=== PATIENT | female | born 1950 | race Caucasian/White ===

== ENCOUNTER → 2019-08-22 | Outpatient (CLI) | payer MEDICARE ==
[2019-08-22 08:54] LABS: Basophils # (A) 0.1 k/uL (0-0.2); Basophils % (A) 1 %; Eosinophils # (A) 0.2 k/uL (0-0.7); Eosinophils % (A) 4 %; HCT 38.2 % (34.0-46.0); HGB 11.8 gm/dL (11.4-16.0); Hypochromasia Slight; Lymphocytes # (A) 1.1 k/uL (1.0-4.8); Lymphocytes % (A) 28 %; MCH 28.9 pg (25.0-35.0); MCHC 30.9 g/dL (31.0-37.0); MCV 93.6 fL (80.0-100.0); Mean Platelet Volume 6.9; Monocytes # (A) 0.2 k/uL (0-1.0); Monocytes % (A) 6 %; Neutrophils # (A) 2.3 k/uL (1.3-7.7); Neutrophils % (A) 58 %; Platelet Count 203 k/uL (150-450); RBC 4.08 m/uL (3.80-5.40); RDW 14.5 % (11.5-15.5); WBC 3.9 k/uL (3.8-10.6)
[2019-08-22 16:27] LABS: African American GFR (CKD) 103.9 (60.0-200.0); Albumin 3.8 g/dL (3.80-4.90); Albumin/Globulin Ratio 2.38 (1.60-3.17); Anion Gap 4.4 mmol/L (4.00-12.00); BUN/Creat Ratio 32.86 Ratio (12.00-20.00); Calcium 9.1 mg/dL (8.7-10.3); Carbon Dioxide 31.6 mmol/L (21.6-31.8); Globulin 1.6 g/dL (1.6-3.3); Non-African American GFR(CKD) 89.7 (60.0-200.0); Potassium 4.7 mmol/L (3.5-5.5); Total Bilirubin 0.4 mg/dL (0.2-1.2); Total Protein 5.4 g/dL (6.2-8.2)
[2019-08-22 16:33] LABS: T4, Free (Free Thyroxine) 1.1 ng/dL (0.80-1.80)
[2019-08-22 18:11] LABS: Hemoglobin A1C 5.8 % (4.0-6.0)
== END | disposition home or self-care (01) ==
LOC: LABWHC1 08:23
PROVIDERS: ATTEND Family Medicine
DX: E03.9 Hypothyroidism, unspecified (principal); R10.13 Epigastric pain; F32.9 Major depressive disorder, single episode, unspecified; Z13.820 Encounter for screening for osteoporosis; R73.01 Impaired fasting glucose
CPT/HCPCS: 36415; 80053; 82150; 82306; 83036; 83690; 84439; 84443; 84481; 85025

== ENCOUNTER 2020-10-05 14:39 | Emergency (ER) | payer MEDICARE, OTHER ==
[2020-10-05 14:52] VITALS: TEMP 98.3
[2020-10-05] MEDS ORDERED: DIPH,PERTUS(ACELL)TETVAC-LF 0.5 ML VIAL IM ONE (15:12)
--- NOTE | 2020-10-05 15:39 | ED ---
Psych HPI <Barrett Padron - Last Filed: 10/05/20 16:28> - General Source: patient, EMS, RN notes reviewed Mode of arrival: EMS - History of Present Illness MD Complaint: suicidal ideation, feels depressed, other <Saman Rasmussen - Last Filed: 10/05/20 20:17> - General Chief Complaint: Psychiatric Symptoms Stated Complaint: fall, ETOH Time Seen by Provider: 10/05/20 14:45 - History of Present Illness Initial Comments: This is a 62-year-old female who is brought in by EMS after a fall in her shower today she states she was intoxicated drinking 2 L of wine because of a breakup with her boyfriend. She also states she is suicidal. She did cut her upper and lower lip when she fell she denies any head neck or back pain. She was brought in with a cervical collar. She is not sure when her last tetanus shot was. She denies a loss of function to her upper or lower extremities. She denies any drugs. (Saman Rasmussen) - Related Data Home Medications Medication Instructions Recorded Confirmed No Known Home Medications 10/05/20 10/05/20 Allergies Allergy/AdvReac Type Severity Reaction Status Date / Time ceftriaxone AdvReac Rash/Hives Verified 10/05/20 16:48 Review of Systems ROS Other: All systems not noted in ROS Statement are negative. <Barrett Padron - Last Filed: 10/05/20 16:28> ROS Other: All systems not noted in ROS Statement are negative. <Saman Rasmussen - Last Filed: 10/05/20 20:17> ROS Statement: Those systems with pertinent positive or pertinent negative responses have been documented in the HPI. Past Medical History Additional Past Medical History / Comment(s): hypothyroidism History of Any Multi-Drug Resistant Organisms: None Reported Past Surgical History: Adenoidectomy, Cholecystectomy Additional Past Surgical History / Comment(s): gastric bypass, bilat breast reduction Past Psychological History: Depression Smoking Status: Former smoker Past Alcohol Use History: Daily, Heavy Past Drug Use History: None Reported <Saman Rasmussen - Last Filed: 10/05/20 20:17> General Exam Limitations: no limitations General appearance: alert, in no apparent distress Head exam: Present: atraumatic, normocephalic, normal inspection Eye exam: Present: normal appearance, PERRL, EOMI. Absent: scleral icterus, conjunctival injection, periorbital swelling ENT exam: Present: TM's normal bilaterally, other (Upper and lower lip laceration on the left dentition is intact. The upper lip will require no repair lower lip will require repair. No active bleeding no tongue injury noted oropharynx is otherwise clear) Neck exam: Present: normal inspection (Cervical collar in place no stridor JVD or bruits no overt tenderness on initial palpation) Respiratory exam: Present: normal lung sounds bilaterally. Absent: respiratory distress, wheezes, rales, rhonchi, stridor Cardiovascular Exam: Present: regular rate, normal rhythm, normal heart sounds. Absent: systolic murmur, diastolic murmur, rubs, gallop, clicks GI/Abdominal exam: Present: soft, normal bowel sounds. Absent: distended, tenderness, guarding, rebound, rigid Extremities exam: Present: normal inspection, full ROM, normal capillary refill. Absent: tenderness, pedal edema, joint swelling, calf tenderness Back exam: Present: normal inspection Neurological exam: Present: alert, oriented X3, CN II-XII intact Psychiatric exam: Present: depressed, suicidal ideation Skin exam: Present: warm, dry, normal color. Absent: intact, rash <Saman Rasmussen - Last Filed: 10/05/20 20:17> - General Exam Comments Initial Comments: Is a well-developed well-nourished alert oriented 3 female who is demonstrating Lilli Coma Scale of 15 she does have the smell of alcohol conjoiners on her breath (Saman Rasmussen) Course Vital Signs 10/05/20 10/05/20 10/05/20 14:40 16:00 17:04 Temperature 98.3 F Pulse Rate 68 65 62 Respiratory 22 20 20 Rate Blood Pressure 145/75 158/84 150/78 O2 Sat by Pulse 95 96 97 Oximetry 10/05/20 17:42 Temperature Pulse Rate 72 Respiratory 20 Rate Blood Pressure 138/84 O2 Sat by Pulse 96 Oximetry Procedures - Laceration Laceration #1 Consent Obtained: verbal consent Indication: laceration Site: lip Size (cm): 1 Description: irregular, clean Depth: simple, single layer Sedation/Analgesia: none Anesthetic Used: lidocaine 1% Anesthesia Technique: nerve block Amount (mls): 1 Pre-repair: irrigated extensively, deep structures intact Type of Sutures: nylon Size of Sutures: 4-0 Number of Sutures: 3 Technique: simple, interrupted Patient Tolerated Procedure: well, no complications <Barrett Padron - Last Filed: 10/05/20 16:28> Medical Decision Making - Lab Data Result diagrams: 10/05/20 15:21 <Barrett Padron - Last Filed: 10/05/20 16:28> - Lab Data Result diagrams: 10/05/20 15:21 10/05/20 15:21 - EKG Data -: EKG Interpreted by [facility] EKG shows normal: sinus rhythm, axis, intervals, QRS complexes, ST-T waves Rate: normal <Saman Rasmussen - Last Filed: 10/05/20 20:17> - Medical Decision Making The patient was evaluated by the EPS service and currently is not a risk to himself or anyone else to be discharged outpatient referrals. (Saman Rasmussen) - Lab Data Lab Results 10/05/20 10/05/20 10/05/20 Range/Units 15:21 15:21 15:21 WBC 4.2 (3.8-10.6) k/uL RBC 3.93 (3.80-5.40) m/uL Hgb 12.2 (11.4-16.0) gm/dL Hct 36.6 (34.0-46.0) % MCV 93.2 (80.0-100.0) fL MCH 31.0 (25.0-35.0) pg MCHC 33.3 (31.0-37.0) g/dL RDW 14.9 (11.5-15.5) % Plt Count 241 (150-450) k/uL MPV 6.6 Neutrophils % 67 % Lymphocytes % 23 % Monocytes % 5 % Eosinophils % 3 % Basophils % 1 % Neutrophils # 2.8 (1.3-7.7) k/uL Lymphocytes # 0.9 L (1.0-4.8) k/uL Monocytes # 0.2 (0-1.0) k/uL Eosinophils # 0.1 (0-0.7) k/uL Basophils # 0.0 (0-0.2) k/uL Sodium 138 (137-145) mmol/L Potassium 4.5 (3.5-5.1) mmol/L Chloride 100 (98-107) mmol/L Carbon Dioxide 29 (22-30) mmol/L Anion Gap 9 mmol/L BUN 16 (7-17) mg/dL Creatinine 0.68 (0.52-1.04) mg/dL Est GFR (CKD-EPI)AfAm >90 (>60 ml/min/1.73 sqM) Est GFR (CKD-EPI)NonAf >90 (>60 ml/min/1.73 sqM) Glucose 104 H (74-99) mg/dL Calcium 9.0 (8.4-10.2) mg/dL Magnesium 2.3 (1.6-2.3) mg/dL Total Bilirubin 0.1 L (0.2-1.3) mg/dL AST 48 H (14-36) U/L ALT 26 (4-34) U/L Alkaline Phosphatase 76 (38-126) U/L Creatine Kinase 68 (30-135) U/L Troponin I (0.000-0.034) ng/mL Total Protein 6.0 L (6.3-8.2) g/dL Albumin 3.7 (3.5-5.0) g/dL Urine Opiates Screen Not Detected (NotDetected) Ur Oxycodone Screen Not Detected (NotDetected) Urine Methadone Screen Not Detected (NotDetected) Ur Propoxyphene Screen Not Detected (NotDetected) Ur Barbiturates Screen Not Detected (NotDetected) U Tricyclic Antidepress Not Detected (NotDetected) Ur Phencyclidine Scrn Not Detected (NotDetected) Ur Amphetamines Screen Not Detected (NotDetected) U Methamphetamines Scrn Not Detected (NotDetected) U Benzodiazepines Scrn Not Detected (NotDetected) Urine Cocaine Screen Not Detected (NotDetected) U Marijuana (THC) Screen Not Detected (NotDetected) Serum Alcohol 140 mg/dL 10/05/20 Range/Units 15:21 WBC (3.8-10.6) k/uL RBC (3.80-5.40) m/uL Hgb (11.4-16.0) gm/dL Hct (34.0-46.0) % MCV (80.0-100.0) fL MCH (25.0-35.0) pg MCHC (31.0-37.0) g/dL RDW (11.5-15.5) % Plt Count (150-450) k/uL MPV Neutrophils % % Lymphocytes % % Monocytes % % Eosinophils % % Basophils % % Neutrophils # (1.3-7.7) k/uL Lymphocytes # (1.0-4.8) k/uL Monocytes # (0-1.0) k/uL Eosinophils # (0-0.7) k/uL Basophils # (0-0.2) k/uL Sodium (137-145) mmol/L Potassium (3.5-5.1) mmol/L Chloride (98-107) mmol/L Carbon Dioxide (22-30) mmol/L Anion Gap mmol/L BUN (7-17) mg/dL Creatinine (0.52-1.04) mg/dL Est GFR (CKD-EPI)AfAm (>60 ml/min/1.73 sqM) Est GFR (CKD-EPI)NonAf (>60 ml/min/1.73 sqM) Glucose (74-99) mg/dL Calcium (8.4-10.2) mg/dL Magnesium (1.6-2.3) mg/dL Total Bilirubin (0.2-1.3) mg/dL AST (14-36) U/L ALT (4-34) U/L Alkaline Phosphatase (38-126) U/L Creatine Kinase (30-135) U/L Troponin I <0.012 (0.000-0.034) ng/mL Total Protein (6.3-8.2) g/dL Albumin (3.5-5.0) g/dL Urine Opiates Screen (NotDetected) Ur Oxycodone Screen (NotDetected) Urine Methadone Screen (NotDetected) Ur Propoxyphene Screen (NotDetected) Ur Barbiturates Screen (NotDetected) U Tricyclic Antidepress (NotDetected) Ur Phencyclidine Scrn (NotDetected) Ur Amphetamines Screen (NotDetected) U Methamphetamines Scrn (NotDetected) U Benzodiazepines Scrn (NotDetected) Urine Cocaine Screen (NotDetected) U Marijuana (THC) Screen (NotDetected) Serum Alcohol mg/dL - EKG Data EKG Comments: Normal sinus rhythm a 65. We'll 156 QRS duration 88 QT since QTC 440/[address]-T wave changes (Saman Rasmussen) Disposition <Barrett Padron - Last Filed: 10/05/20 16:28> Is patient prescribed a controlled substance at d/c from ED?: No <Saman Rasmussen - Last Filed: 10/05/20 20:17> Clinical Impression: Alcohol intoxication, Laceration of lip, Adjustment reaction Disposition: HOME SELF-CARE Condition: Good Instructions (If sedation given, give patient instructions): Mood Disorders (ED), Laceration (ED), Alcohol Intoxication (ED) Referrals: Cynthia Plascencia MD [Primary Care Provider] - 1-2 days
[2020-10-05 15:56] LABS: ALT 26 U/L (4-34); AST 48 U/L (14-36); African American GFR (CKD) >90 (>60 ml/min/1.73 sqM); Albumin 3.7 g/dL (3.5-5.0); Alkaline Phosphatase 76 U/L (38-126); Anion Gap 9 mmol/L; Blood Urea Nitrogen 16 mg/dL (7-17); Carbon Dioxide 29 mmol/L (22-30); Chloride 100 mmol/L (98-107); Creatine Kinase 68 U/L (30-135); Glucose 104 mg/dL (74-99); Magnesium 2.3 mg/dL (1.6-2.3); Non-African American GFR(CKD) >90 (>60 ml/min/1.73 sqM); Potassium 4.5 mmol/L (3.5-5.1); Sodium 138 mmol/L (137-145); Total Bilirubin 0.1 mg/dL (0.2-1.3)
--- NOTE | 2020-10-05 15:57 | CT ---
EXAMINATION TYPE: CT brain estefany butler con DATE OF EXAM: 10/05/2020 COMPARISON: None HISTORY: Syncopal episode with injury CT DLP: 1537.7 mGycm Automated exposure control for dose reduction was used. Exam performed with no contrast. Ventricles have normal size. There is no mass effect nor midline shift. There is no sign of intracran ial hemorrhage. There is mild cerebral atrophy. Calvarium is intact. The cervical vertebra have normal alignment. There is degenerative disc space narrowing from C4 to C7 with spurring of the endplates. Facet joints are intact. IMPRESSION: Mild cerebral atrophy. No acute intracranial abnormality. Spondylotic changes in the mid and lower cervical spine. No fracture.
[2020-10-05] MEDS ORDERED: LIDOCAINE 1% INJ 10MG/ML (20 ML MDV) SQ ONE (16:01)
[2020-10-05 16:17] LABS: Alcohol 140 mg/dL
[2020-10-05 16:39] LABS: Basophils % (A) 1 %; Eosinophils # (A) 0.1 k/uL (0-0.7); Eosinophils % (A) 3 %; HCT 36.6 % (34.0-46.0); HGB 12.2 gm/dL (11.4-16.0); Lymphocytes # (A) 0.9 k/uL (1.0-4.8); Lymphocytes % (A) 23 %; MCHC 33.3 g/dL (31.0-37.0); MCV 93.2 fL (80.0-100.0); Mean Platelet Volume 6.6; Monocytes # (A) 0.2 k/uL (0-1.0); Monocytes % (A) 5 %; Neutrophils # (A) 2.8 k/uL (1.3-7.7); Neutrophils % (A) 67 %; Platelet Count 241 k/uL (150-450); RBC 3.93 m/uL (3.80-5.40); RDW 14.9 % (11.5-15.5); WBC 4.2 k/uL (3.8-10.6)
[2020-10-05 17:18] LABS: Amphetamine Screen,Urine Not Detected (NotDetected); Barbiturate Screen,Urine Not Detected (NotDetected); Benzodiazepines Screen,Urine Not Detected (NotDetected); Cocaine Screen,Urine Not Detected (NotDetected); Methadone Screen, Urine Not Detected (NotDetected); Opiate Screen,Urine Not Detected (NotDetected); Oxycodone Screen, Urine Not Detected (NotDetected); Phencyclidine Screen,Urine Not Detected (NotDetected); Tricyclic Antidepressant,Urine Not Detected (NotDetected); Urn Cannabinoid Scrn Not Detected (NotDetected)
[2020-10-05] MEDS ORDERED: IBUPROFEN 800 MG TAB PO STA (17:45)
[2020-10-05 23:30] VITALS: BP 143/89; PULSE 66; RESP 95
== END 2020-10-05 20:35 | disposition home or self-care (01) ==
LOC: EC 14:39 → SUPCPDRO 14:39 → EC 20:35
DX: S01.511A Laceration without foreign body of lip, initial encounter (principal); F10.129 Alcohol abuse with intoxication, unspecified; F43.20 Adjustment disorder, unspecified; E03.9 Hypothyroidism, unspecified; Z87.891 Personal history of nicotine dependence; Z88.1 Allergy status to other antibiotic agents; Z23 Encounter for immunization; Y90.9 Presence of alcohol in blood, level not specified; W18.2XXA Fall in (into) shower or empty bathtub, initial encounter
CPT/HCPCS: 90471 ×2; 12011; 99285 ×2; 12001; 36415; 93005; 80053; 82550; 83735; 84484; 85025; 80306; 72125; 70450; 90715; G0480; J2001; 80320

== ENCOUNTER 2021-01-22 08:05 | Emergency (ER) | payer MEDICARE, OTHER ==
[2021-01-22] MEDS ORDERED: ENALAPRILAT 1.25 MG/ML 1 ML VIAL IVP STA (08:33)
--- NOTE | 2021-01-22 08:38 | ED ---
General Adult HPI - General Chief complaint: Chest Pain Stated complaint: High blood pressure Time Seen by Provider: 01/22/21 08:09 Source: patient, EMS, RN notes reviewed Mode of arrival: EMS Limitations: no limitations - History of Present Illness Initial comments: 70-year-old female presents emergency department via EMS with chief complaint of hypertension. 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 Patient states she is under a large amount of stress with her life and which this is been weighing on her. Patient states she gets very anxious, worked up, having issues with her stress. Denies any suicidal homicidal. Patient states she has no history of hypertension thank you complaint of chest pain currently. She states she just gets stressed feels heavy. Patient denies any nausea vomiting diarrhea constipation. Patient offers no other associated complaints. - Related Data Home Medications Medication Instructions Recorded Confirmed Cholecalciferol [Vitamin D3 (25 25 mcg PO DAILY 01/22/21 01/22/21 Mcg = 1000 Iu)] Cyanocobalamin (Vitamin B-12) 1,000 mcg PO DAILY 01/22/21 01/22/21 [Vitamin B-12] FLUoxetine HCL [PROzac] 80 mg PO DAILY 01/22/21 01/22/21 Levothyroxine Sodium [Synthroid] 125 mcg PO DAILY 01/22/21 01/22/21 SUMAtriptan SUCCINATE [Imitrex] 100 mg PO DAILY PRN 01/22/21 01/22/21 buPROPion XL [Wellbutrin XL] 150 mg PO DAILY 01/22/21 01/22/21 traZODone HCL [Desyrel] 100 mg PO HS 01/22/21 01/22/21 Previous Rx's Medication Instructions Recorded lisinopriL [Zestril] 10 mg PO DAILY #30 tab 01/22/21 Allergies Allergy/AdvReac Type Severity Reaction Status Date / Time ceftriaxone AdvReac Rash/Hives Verified 01/22/21 09:48 Review of Systems ROS Statement: Those systems with pertinent positive or pertinent negative responses have been documented in the HPI. ROS Other: All systems not noted in ROS Statement are negative. Past Medical History Additional Past Medical History / Comment(s): hypothyroidism History of Any Multi-Drug Resistant Organisms: None Reported Past Surgical History: Adenoidectomy, Cholecystectomy Additional Past Surgical History / Comment(s): gastric bypass, bilat breast reduction Past Psychological History: Depression Smoking Status: Former smoker Past Alcohol Use History: Daily, Heavy Past Drug Use History: None Reported General Exam Limitations: no limitations General appearance: alert, in no apparent distress Head exam: Present: atraumatic, normocephalic, normal inspection Eye exam: Present: normal appearance, PERRL, EOMI. Absent: scleral icterus, conjunctival injection, periorbital swelling ENT exam: Present: normal exam, normal oropharynx, mucous membranes moist Neck exam: Present: normal inspection, full ROM. Absent: tenderness, meningismus, lymphadenopathy Respiratory exam: Present: normal lung sounds bilaterally. Absent: respiratory distress, wheezes, rales, rhonchi, stridor Cardiovascular Exam: Present: regular rate, normal rhythm, normal heart sounds. Absent: systolic murmur, diastolic murmur, rubs, gallop, clicks GI/Abdominal exam: Present: soft, normal bowel sounds. Absent: distended, tenderness, guarding, rebound, rigid Course Vital Signs 01/22/21 01/22/21 08:15 08:48 Temperature 97.7 F 98.5 F Pulse Rate 61 116 H Respiratory 18 18 Rate Blood Pressure 179/88 165/109 O2 Sat by Pulse 96 96 Oximetry Medical Decision Making - Medical Decision Making 70-year-old presented for hypertension. Patient's blood pressures improve as reviewed no significant abnormality. EKG and troponin are negative. Patient was started on lisinopril 10 mg will follow-up with her PCP for recheck she'll continue to monitor blood pressure at home. - Lab Data Result diagrams: 01/22/21 08:41 01/22/21 08:41 Lab Results 01/22/21 01/22/21 01/22/21 Range/Units 08:41 08:41 08:41 WBC 6.0 (3.8-10.6) k/uL RBC 4.21 (3.80-5.40) m/uL Hgb 13.4 (11.4-16.0) gm/dL Hct 39.7 (34.0-46.0) % MCV 94.3 (80.0-100.0) fL MCH 31.8 (25.0-35.0) pg MCHC 33.7 (31.0-37.0) g/dL RDW 15.6 H (11.5-15.5) % Plt Count 254 (150-450) k/uL MPV 6.5 Neutrophils % 71 % Lymphocytes % 22 % Monocytes % 4 % Eosinophils % 1 % Basophils % 0 % Neutrophils # 4.2 (1.3-7.7) k/uL Lymphocytes # 1.3 (1.0-4.8) k/uL Monocytes # 0.3 (0-1.0) k/uL Eosinophils # 0.1 (0-0.7) k/uL Basophils # 0.0 (0-0.2) k/uL Sodium 135 L (137-145) mmol/L Potassium 4.8 (3.5-5.1) mmol/L Chloride 99 (98-107) mmol/L Carbon Dioxide 30 (22-30) mmol/L Anion Gap 6 mmol/L BUN 18 H (7-17) mg/dL Creatinine 0.82 (0.52-1.04) mg/dL Est GFR (CKD-EPI)AfAm 85 (>60 ml/min/1.73 sqM) Est GFR (CKD-EPI)NonAf 74 (>60 ml/min/1.73 sqM) Glucose 98 (74-99) mg/dL Calcium 9.5 (8.4-10.2) mg/dL Total Bilirubin 0.5 (0.2-1.3) mg/dL AST 27 (14-36) U/L ALT 21 (4-34) U/L Alkaline Phosphatase 94 (38-126) U/L Troponin I <0.012 (0.000-0.034) ng/mL Total Protein 6.5 (6.3-8.2) g/dL Albumin 3.9 (3.5-5.0) g/dL Disposition Clinical Impression: Hypertension Disposition: HOME SELF-CARE Condition: Stable Instructions (If sedation given, give patient instructions): Hypertension (ED) Additional Instructions: Please return to the Emergency Department if symptoms worsen or any other concerns. Prescriptions: lisinopriL [Zestril] 10 mg PO DAILY #30 tab Is patient prescribed a controlled substance at d/c from ED?: No Referrals: Cynthia Plascencia MD [Primary Care Provider] - 1-2 days Time of Disposition: 09:58
[2021-01-22 08:55] VITALS: TEMP 98.5
[2021-01-22 09:28] LABS: Albumin 3.9 g/dL (3.5-5.0); Calcium 9.5 mg/dL (8.4-10.2); Potassium 4.8 mmol/L (3.5-5.1); Total Bilirubin 0.5 mg/dL (0.2-1.3); Total Protein 6.5 g/dL (6.3-8.2)
[2021-01-22 09:37] LABS: Basophils % (A) 0 %; Eosinophils # (A) 0.1 k/uL (0-0.7); Eosinophils % (A) 1 %; HCT 39.7 % (34.0-46.0); HGB 13.4 gm/dL (11.4-16.0); Lymphocytes # (A) 1.3 k/uL (1.0-4.8); Lymphocytes % (A) 22 %; MCH 31.8 pg (25.0-35.0); MCHC 33.7 g/dL (31.0-37.0); MCV 94.3 fL (80.0-100.0); Mean Platelet Volume 6.5; Monocytes # (A) 0.3 k/uL (0-1.0); Monocytes % (A) 4 %; Neutrophils # (A) 4.2 k/uL (1.3-7.7); Neutrophils % (A) 71 %; Platelet Count 254 k/uL (150-450); RBC 4.21 m/uL (3.80-5.40); RDW 15.6 % (11.5-15.5)
[2021-01-22 10:30] VITALS: RESP 16
[2021-01-22 10:49] VITALS: BP 150/82; PULSE 88
== END 2021-01-22 10:49 | disposition home or self-care (01) ==
LOC: EC 08:05
DX: I10 Essential (primary) hypertension (principal); E03.9 Hypothyroidism, unspecified; F32.A Depression, unspecified; Z87.891 Personal history of nicotine dependence; Z72.89 Other problems related to lifestyle
CPT/HCPCS: 36415; 80053; 84484; 85025; 93005; 96374; 99285

== ENCOUNTER 2022-02-01 08:20 | Emergency (ER) | payer MEDICARE, OTHER ==
[2022-02-01 08:36] VITALS: RESP 18
--- NOTE | 2022-02-01 08:54 | ED ---
General Adult HPI - General Chief complaint: Upper Respiratory Infection Stated complaint: head pain Time Seen by Provider: 02/01/22 08:40 Source: patient, RN notes reviewed Mode of arrival: ambulatory Limitations: no limitations - History of Present Illness Initial comments: 71-year-old female with a history of migraine coming in for cough kayley es one day. She admits to accompanying symptoms of runny nose and headache. She has tried taking Tylenol and sumatriptan for her symptoms with no relief. She denies any recent sick contacts. She was vaccinated against Covid, but not vaccinated flu. She denies fever, shortness of breath, chest pain, palpitations, abdominal pain, nausea, vomiting ,diarrhea. - Related Data Home Medications Medication Instructions Recorded Confirmed Cholecalciferol [Vitamin D3 (25 25 mcg PO DAILY 01/22/21 01/22/21 Mcg = 1000 Iu)] Cyanocobalamin (Vitamin B-12) 1,000 mcg PO DAILY 01/22/21 01/22/21 [Vitamin B-12] FLUoxetine HCL [PROzac] 80 mg PO DAILY 01/22/21 01/22/21 Levothyroxine Sodium [Synthroid] 125 mcg PO DAILY 01/22/21 01/22/21 SUMAtriptan succinate [Imitrex] 100 mg PO DAILY PRN 01/22/21 01/22/21 buPROPion XL [Wellbutrin XL] 150 mg PO DAILY 01/22/21 01/22/21 traZODone HCL [Desyrel] 100 mg PO HS 01/22/21 01/22/21 Previous Rx's Medication Instructions Recorded lisinopriL [Zestril] 10 mg PO DAILY #30 tab 01/22/21 Allergies Allergy/AdvReac Type Severity Reaction Status Date / Time clindamycin Allergy Rash/Hives Verified 02/01/22 08:36 ceftriaxone AdvReac Rash/Hives Verified 02/01/22 08:36 Review of Systems ROS Statement: Those systems with pertinent positive or pertinent negative responses have been documented in the HPI. ROS Other: All systems not noted in ROS Statement are negative. Past Medical History Additional Past Medical History / Comment(s): hypothyroidism History of Any Multi-Drug Resistant Organisms: None Reported Past Surgical History: Adenoidectomy, Cholecystectomy Additional Past Surgical History / Comment(s): gastric bypass, bilat breast reduction Past Psychological History: Depression Smoking Status: Former smoker Past Alcohol Use History: Daily, Heavy Past Drug Use History: None Reported General Exam Limitations: no limitations General appearance: alert, in no apparent distress Head exam: Present: atraumatic, normocephalic, normal inspection Eye exam: Present: normal appearance, PERRL, EOMI. Absent: scleral icterus, conjunctival injection, periorbital swelling ENT exam: Present: normal exam, mucous membranes moist Neck exam: Present: normal inspection. Absent: tenderness, meningismus, lymphadenopathy Respiratory exam: Present: normal lung sounds bilaterally. Absent: respiratory distress, wheezes, rales, rhonchi, stridor Cardiovascular Exam: Present: regular rate, normal rhythm, normal heart sounds. Absent: systolic murmur, diastolic murmur, rubs, gallop, clicks GI/Abdominal exam: Present: soft, normal bowel sounds. Absent: distended, tenderness, guarding, rebound, rigid Psychiatric exam: Present: normal affect, normal mood Skin exam: Present: warm, dry, intact, normal color. Absent: rash Course Vital Signs 02/01/22 08:33 Temperature 98.4 F Pulse Rate 60 Respiratory 18 Rate Blood Pressure 135/82 O2 Sat by Pulse 97 Oximetry Medical Decision Making - Medical Decision Making C11-year-old female coming in for a cough. Patient had Covid flu and RSV Performed the ED. COVID positive I interpreted the following; chest x-ray negative for acute pleural process. I discussed the results in detail with the patient answered all questions appropriately. Case discussed with Dr. Vazquez. - Lab Data Lab Results 02/01/22 Range/Units 08:38 Influenza Type A (PCR) Not Detected (Not Detectd) Influenza Type B (PCR) Not Detected (Not Detectd) RSV (PCR) Not Detected (Not Detectd) SARS-CoV-2 (PCR) Detected A (Not Detectd) Disposition Clinical Impression: COVID-19 Disposition: HOME SELF-CARE Condition: Stable Instructions (If sedation given, give patient instructions): Upper Respiratory Infection in Children (ED) Additional Instructions: These return to the ED if worsening symptoms of cough or shortness of breath. Is patient prescribed a controlled substance at d/c from ED?: No Referrals: Grant Gaston MD [Primary Care Provider] - 1-2 days Time of Disposition: 09:46
--- NOTE | 2022-02-01 09:12 | XR ---
EXAMINATION TYPE: XR chest 2V DATE OF EXAM: 02/01/2022 COMPARISON: NONE TECHNIQUE: PA and lateral views submitted. HISTORY: Cough FINDINGS: The lungs are clear and there is no pneumothorax, pleural effusion, or focal pneumonia. Sclerotic l esion involving the right humeral head. No overt failure. Hyperinflation noted. IMPRESSION: 1. 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 Chondroid lesion in the differen tial diagnosis correlate with bone scan as clinically warranted. 2. No evidence of acute intrathoracic process. 3. COPD.
[2022-02-01] MEDS ORDERED: ACETAMINOPHEN TAB 325 MG TAB PO STA (09:45)
[2022-02-01 10:02] VITALS: BP 151/83; PULSE 54; TEMP 98.1
== END 2022-02-01 10:01 | disposition home or self-care (01) ==
LOC: EC 08:20
DX: U07.1 COVID-19 (principal); E03.9 Hypothyroidism, unspecified; F32.A Depression, unspecified; Z88.1 Allergy status to other antibiotic agents; Z79.890 Hormone replacement therapy; Z87.891 Personal history of nicotine dependence
CPT/HCPCS: 71046; 87636; 99284